=== PATIENT | male | born 1975 | race Hispanic/Latino ===

== ENCOUNTER → 2023-10-27 06:27 | Day surgery (SDC) | payer OTHER, SELFPAY ==
[2023-10-27 09:08] LABS: Glucose - Point of Care 117 mg/dl (70-99)
== END ==
LOC: GI 06:27
PROVIDERS: ATTENDING PHYSICIAN Internal Medicine Gastroenterology
DX: R13.12 Dysphagia, oropharyngeal phase (principal); K29.50 Unspecified chronic gastritis without bleeding
CPT/HCPCS: 43239; 88305; 82962; 88342